=== PATIENT | male | born 1970 | race Hispanic/Latino ===

== ENCOUNTER 2018-12-25 21:28 | Emergency (ER) | payer BC, OTHER ==
[~2018-12-25] VITALS: Ht 167.6 cm; Wt 70.3 kg
[2018-12-25] MEDS ORDERED: TETANUS/DIPHTHERIA TOX ADULT 0.5 ML SYR IM STA (22:38)
[2018-12-25] MEDS ORDERED: CLINDAMYCIN PHOS 900MG/ 50ML 50 ML IV ONE (22:57)
[2018-12-25] MEDS ORDERED: CLINDAMYCIN PHOS 900MG/ 50ML 50 ML IV STA (23:00)
[2018-12-25 23:15] LABS: BASOPHILS % 0.3 % (0.0-1.0); EOSINOPHILS # (AUTO) 0.4 (0.0-0.4); HEMATOCRIT 40.6 % (38.2-49.6); HEMOGLOBIN 14.4 g/dL (14.0-18.0); LYMPHOCYTES # (AUTO) 2.9 (1.0-3.2); MEAN CORPUSCULAR HEMOGLOBIN 30.7 pg (28-32); MEAN CORPUSCULAR HGB CONC 35.5 g/dL (31-35); MEAN CORPUSCULAR VOLUME 86.6 fL (81-99); MONOCYTES # (AUTO) 0.7 (0.2-0.8); MONOCYTES % 7.5 % (4.4-11.3); PLATELET COUNT 228 x10e3/uL (140-360); RED BLOOD COUNT 4.69 x10e6/uL (4.3-5.7); RED CELL DISTRIBUTION WIDTH 12.2 % (11.7-14.4)
[2018-12-25 23:27] LABS: ALANINE AMINOTRANSFERASE 49 IU/L (0-55); ALBUMIN 3.9 g/dL (3.5-5.0); ALBUMIN/GLOBULIN RATIO 1.1 (0.8-2.0); ALKALINE PHOSPHATASE 79 IU/L (40-150); ANION GAP 13.9 mmol/L (8-16); BLOOD UREA NITROGEN 17 mg/dL (7-26); BUN/CREATININE RATIO 19 (6-25); CALCIUM 9.6 mg/dL (8.4-10.2); CARBON DIOXIDE 24 mmol/L (22-29); CHLORIDE 103 mmol/L (98-107); CREATININE, SERUM 0.89 mg/dL (0.72-1.25); EST GLOMERULAR FILTRATION RATE > 60 ML/MIN (60-); GLUCOSE 95 mg/dL (74-118); POTASSIUM 3.9 mmol/L (3.5-5.1); SODIUM 137 mmol/L (136-145)
[2018-12-25] MEDS ORDERED: CLINDAMYCIN HC300 MG PO (23:27)
== END 2018-12-25 23:54 | disposition home or self-care (01) ==
LOC: ER 21:28
DX: M79.644 Pain in right finger(s) (principal); L03.011 Cellulitis of right finger; W45.8XXA Other foreign body or object entering through skin, initial encounter; Y93.H2 Activity, gardening and landscaping; Y92.007 Garden or yard of unspecified non-institutional (private) residence as the place of occurrence of the external cause
CPT/HCPCS: 36415; 80053; 85025; 90471; 90714; 99283

== ENCOUNTER → 2024-02-21 | Day surgery (SDC) | payer BC ==
[~2024-02-21] MED LIST: ACETAMINOPHEN 1000 MG/100 ML 100 ML IV ONE; ACETAMINOPHEN 1000 MG/100 ML IV ONE; CLINDAMYCIN HC300 MG PO; DEXAMETHASONE SOD PHOS INJ 4 MG/ML SDV ONE; FENTANYL CITRATE/PF 100MCG/2 ML INJ ONE; KETOROLAC TROMETHAMINE 30 MG/ML VIAL ONE; LIDOCAINE HCL 2% LOCAL INJ 5 ML SDV VIAL INJ ONE; ONDANSETRON HCL INJ 2MG/ML 2ML 2 MG/ML VIAL ONE; PROPOFOL IV EMULSION 10 MG/ML 20 ML VIAL ONE; SEVOFLURANE INHAL SOLN 250 ML PEN BTL ONE; VITAMIN D3 COM1 EACH PO; ZINC CHELATED50 M2 PO
[2024-02-21] MEDS: LACTATED RINGER'S 1,000 ML ONE (11:07)
[2024-02-21] MEDS: HYDROCODONE/APAP 5MG-325MG TAB ONE (13:30)
[2024-02-21 14:00] VITALS: BP 122/83; PULSE 56; RESP 15; O2SAT 99
== END | disposition home or self-care (01) ==
LOC: OR 10:44
PROVIDERS: ATTEND Specialist
DX: M20.011 Mallet finger of right finger(s) (principal); S62.634A Displaced fracture of distal phalanx of right ring finger, initial encounter for closed fracture; W21.05XA Struck by basketball, initial encounter; Y93.67 Activity, basketball; R00.1 Bradycardia, unspecified; Z01.810 Encounter for preprocedural cardiovascular examination
CPT/HCPCS: 26756; 76000; 93005; C1713; J0131; J0690; J1100; J1885; J2001; J2405; J2704; J3010; J7121